=== PATIENT | female | born 1940 | race Asian ===

== ENCOUNTER 2019-03-26 17:31 | Emergency (ER) | payer OTHER, MEDICAID ==
[~2019-03-26] VITALS: Ht 160 cm; Wt 49.0 kg
[2019-03-26] MEDS ORDERED: ACETAMINOPHEN 500MG TABLET PO ONE (19:00)
[2019-03-26 19:17] LABS: BASOPHILS % 0.6 % (0.0-2.0); EOSINOPHILS % 0.8 % (0.0-5.0); HEMATOCRIT. 43.1 % (36.0-48.0); HEMOGLOBIN. 14.5 g/dL (12.0-16.0); LYMPHOCYTES % 26.1 % (20.0-50.0); MEAN CORPUSCULAR HEMOGLOBIN 32.4 pg (28.0-32.0); MEAN CORPUSCULAR VOLUME 96.2 fL (81.0-99.0); MEAN PLATELET VOLUME 9.5 fl (7.4-10.4); MONOCYTES % 7.9 % (2.0-8.0); NEUTROPHILS % 64.6 % (40.0-76.0); PLATELET 190 x1000/uL (130-400); RED BLOOD CELL COUNT 4.49 mill/uL (4.2-5.4); RED CELL DISTRIBUTION WIDTH 13.1 % (11.6-14.6)
[2019-03-26 19:24] LABS: CHLORIDE 110 mEq/L (98-107); INR 0.9; PROTHROMBIN TIME 9.7 sec (9.6-11.0)
[2019-03-26 21:06] VITALS: BP 145/71
== END 2019-03-26 21:06 | disposition home or self-care (01) ==
LOC: EDBD 17:31 → ER 17:31
DX: M71.22 Synovial cyst of popliteal space [Baker], left knee (principal); M79.662 Pain in left lower leg; I51.9 Heart disease, unspecified; Z98.890 Other specified postprocedural states
CPT/HCPCS: 36415; 93971; 99284

== ENCOUNTER 2019-07-01 03:37 | Inpatient (IN) | payer OTHER, MEDICAID ==
[~2019-07-01] VITALS: Ht 154.9 cm; Wt 47.2 kg
[2019-07-01] MEDS ORDERED: KETOROLAC 15MG/ML VIAL IV ONE (04:00)
[2019-07-01] MEDS ORDERED: MORPHINE SULFATE 2 MG/ML CPJ (NOT FOR IM USE) IV ONE (04:15)
[2019-07-01 04:51] LABS: BASOPHILS % 0.5 % (0.0-2.0); EOSINOPHILS % 0.9 % (0.0-5.0); HEMATOCRIT. 39.4 % (36.0-48.0); HEMOGLOBIN. 13.3 g/dL (12.0-16.0); LYMPHOCYTES % 18.5 % (20.0-50.0); MEAN CORPUSCULAR HEMOGLOBIN 32.1 pg (28.0-32.0); MEAN CORPUSCULAR VOLUME 95.4 fL (81.0-99.0); MEAN PLATELET VOLUME 9.2 fl (7.4-10.4); MONOCYTES % 5.7 % (2.0-8.0); NEUTROPHILS % 74.4 % (40.0-76.0); PLATELET 188 x1000/uL (130-400); RED BLOOD CELL COUNT 4.13 mill/uL (4.2-5.4); RED CELL DISTRIBUTION WIDTH 12.8 % (11.6-14.6)
[2019-07-01 05:08] LABS: CHLORIDE 111 mEq/L (98-107)
[2019-07-01 06:29] LABS: INR 1.5; PARTIAL THROMBOPLASTIN TIME 51.1 sec (23.4-31.0); PROTHROMBIN TIME 15.4 sec (9.6-11.0)
[2019-07-01] MEDS ORDERED: ONDANSETRON HCL 4MG/2ML INJ IV PRN (10:15)
[2019-07-01] MEDS ORDERED: CLONIDINE 0.1MG TABLET PO PRN (10:15)
[2019-07-01] MEDS ORDERED: IPRATROPIUM/ALBUTEROL 0.5-3(2.5)MG/3ML NEB HHN PRN (10:15)
[2019-07-01] MEDS ORDERED: ACETAMINOPHEN 650MG SUPP PR PRN (10:15)
[2019-07-01] MEDS ORDERED: IOHEXOL-300 100 ML BOTTLE ONE (12:12)
[2019-07-01] MEDS ORDERED: SODIUM CHLORIDE 0.45% 1,000 ML IV ONE (15:45)
[2019-07-01] MEDS: HYDROCODONE/ACETAMINOPHEN 5/325MG TABLET PO PRN ×2 (17:24→23:33)
[2019-07-01 20:30] VITALS: BP 132/82
[2019-07-01 21:00] VITALS: BP 141/76
[2019-07-02] VITALS: BP 119/78
[2019-07-02 04:00] VITALS: BP 133/79
[2019-07-02 06:54] LABS: CHLORIDE 108 mEq/L (98-107)
[2019-07-02 07:03] LABS: LDL CHOLESTEROL 82 mg/dL (5-100)
[2019-07-02 07:04] LABS: HDL CHOLESTEROL 56 mg/dL (40-59); T4 FREE 1.17 ng/dL (0.76-1.46)
[2019-07-02 07:23] LABS: BASOPHILS % 0.4 % (0.0-2.0); EOSINOPHILS % 2.4 % (0.0-5.0); HEMATOCRIT. 37.8 % (36.0-48.0); LYMPHOCYTES % 25.4 % (20.0-50.0); MEAN CORPUSCULAR HEMOGLOBIN 32.7 pg (28.0-32.0); MEAN PLATELET VOLUME 9.3 fl (7.4-10.4); MONOCYTES % 7.2 % (2.0-8.0); NEUTROPHILS % 64.6 % (40.0-76.0); PLATELET 182 x1000/uL (130-400); RED BLOOD CELL COUNT 3.98 mill/uL (4.2-5.4); RED CELL DISTRIBUTION WIDTH 12.9 % (11.6-14.6)
[2019-07-02 08:00] VITALS: BP 131/79
[2019-07-02 16:00] VITALS: BP 131/79
[2019-07-02] MEDS: HYDROCODONE/ACETAMINOPHEN 5/325MG TABLET PO PRN (17:16)
[2019-07-02 20:00] VITALS: BP 113/60
[2019-07-02] MEDS: GUAIFENESIN 200MG/10ML SUGAR FREE UDC PO PRN (22:44)
[2019-07-03] VITALS: BP 129/81
[2019-07-03 04:00] VITALS: BP 134/89
[2019-07-03 08:00] VITALS: BP 144/95
[2019-07-03] MEDS: GUAIFENESIN 200MG/10ML SUGAR FREE UDC PO PRN (09:48)
[2019-07-03 12:00] VITALS: BP 132/80
[2019-07-03] MEDS: HYDROCODONE/ACETAMINOPHEN 5/325MG TABLET PO PRN ×2 (12:21→17:43)
[2019-07-03 16:00] VITALS: BP 154/82
[2019-07-03 20:00] VITALS: BP 131/87
[2019-07-04] VITALS: BP 143/91
[2019-07-04 04:00] VITALS: BP 146/75
[2019-07-04 07:40] LABS: BASOPHILS % 0.5 % (0.0-2.0); EOSINOPHILS % 4.2 % (0.0-5.0); HEMATOCRIT. 39.6 % (36.0-48.0); HEMOGLOBIN. 13.4 g/dL (12.0-16.0); LYMPHOCYTES % 20.5 % (20.0-50.0); MEAN CORPUSCULAR HEMOGLOBIN 32.3 pg (28.0-32.0); MEAN CORPUSCULAR VOLUME 95.4 fL (81.0-99.0); MEAN PLATELET VOLUME 8.9 fl (7.4-10.4); MONOCYTES % 7.7 % (2.0-8.0); NEUTROPHILS % 67.1 % (40.0-76.0); PLATELET 198 x1000/uL (130-400); RED BLOOD CELL COUNT 4.15 mill/uL (4.2-5.4); RED CELL DISTRIBUTION WIDTH 12.8 % (11.6-14.6)
[2019-07-04 08:00] VITALS: BP 157/86
[2019-07-04 08:04] LABS: CHLORIDE 109 mEq/L (98-107)
[2019-07-04] MEDS ORDERED: LIDOCAINE HCL 1% 20ML VIAL (Pyxis) INJ ONE (08:32)
[2019-07-04] MEDS ORDERED: SODIUM BICARBONATE 4% (2.4MEQ) 5ML VIAL IV ONE (08:32)
[2019-07-04 12:00] VITALS: BP 140/83
[2019-07-04] MEDS: HYDROCODONE/ACETAMINOPHEN 5/325MG TABLET PO PRN ×2 (15:59→19:59)
[2019-07-04 16:00] VITALS: BP 120/78
[2019-07-04] MEDS ORDERED: RIVAROXABAN 15 MG TABLET PO SCH (17:00)
[2019-07-04] MEDS ORDERED: LORAZEPAM 2MG/ML CPJ IV PRN (17:45)
[2019-07-04] MEDS ORDERED: CLONIDINE 0.1MG TABLET PO PRN (17:45)
[2019-07-04] MEDS ORDERED: ACETAMINOPHEN 650MG/20.3ML UDC PO PRN (17:45)
[2019-07-04] MEDS ORDERED: LACTULOSE 20G/30ML UDC PO PRN (17:45)
[2019-07-04] MEDS ORDERED: DIPHENHYDRAMINE 50MG/ML VIAL IV PRN (17:45)
[2019-07-04 20:00] VITALS: BP 127/74
[2019-07-04] MEDS ORDERED: FAMOTIDINE 20MG TABLET PO SCH (21:00)
[2019-07-04] MEDS ORDERED: ATORVASTATIN CALCIUM 10MG TABLET PO SCH (21:00)
[2019-07-04] MEDS: DILTIAZEM HCL 30MG TABLET PO SCH (21:53)
[2019-07-05] VITALS: BP 119/83
[2019-07-05 04:00] VITALS: BP 138/73
[2019-07-05] MEDS: DILTIAZEM HCL 30MG TABLET PO SCH ×2 (06:28→13:18)
[2019-07-05 08:00] VITALS: BP 113/73
[2019-07-05 09:11] LABS: INR 1.1; PROTHROMBIN TIME 11.2 sec (9.6-11.0)
[2019-07-05 09:21] LABS: HEMATOCRIT 40.3 % (36.0-48.0); HEMOGLOBIN 13.9 g/dL (12.0-16.0); MEAN CORPUSCULAR HEMOGLOBIN 32.5 pg (28.0-32.0); MEAN CORPUSCULAR VOLUME 94.4 fL (81.0-99.0); PLATELET 207 x1000/uL (130-400); RED BLOOD CELL COUNT 4.27 mill/uL (4.2-5.4)
[2019-07-05 09:51] LABS: CHLORIDE 108 mEq/L (98-107)
[2019-07-05 11:51] LABS: CLARITY URINE CLEAR (CLEAR); COLOR URINE DARK YELLOW (YELLOW); KETONES URINE NEGATIVE (NEGATIVE); LEUKOCYTE ESTERASE URINE TRACE (NEGATIVE); NITRITE URINE NEGATIVE (NEGATIVE); OCCULT BLOOD URINE NEGATIVE (NEGATIVE); PH URINE 5.5 (4.5-8.0); PROTEIN URINE NEGATIVE (NEGATIVE); SPECIFIC GRAVITY URINE 1.022 (1.005-1.030)
[2019-07-05 12:00] VITALS: BP 120/78
[2019-07-05] MEDS: HYDROCODONE/ACETAMINOPHEN 5/325MG TABLET PO PRN ×2 (13:21→17:58)
[2019-07-05 14:07] LABS: ANTI-NUCLEAR ANTIBODIES DIRECT Negative (Negative)
[2019-07-05 16:00] VITALS: BP 118/86
[2019-07-05] MEDS ORDERED: RIVAROXABAN 20 MG TABLET PO SCH (17:00)
[2019-07-05 19:06] VITALS: BP 118/86
== END 2019-07-05 19:50 | disposition home or self-care (01) | DRG 554 ==
LOC: ER 03:37 → 5WST 06:15 → ENRESERV 18:10
PROVIDERS: ADMIT Internal Medicine; ATTEND Internal Medicine
PROC: 0S9D3ZZ Drainage of Left Knee Joint, Percutaneous Approach (ICD-10-PCS; principal; 2019-07-04)
DX: M25.062 Hemarthrosis, left knee (principal); I48.19 Other persistent atrial fibrillation; E78.5 Hyperlipidemia, unspecified; I08.0 Rheumatic disorders of both mitral and aortic valves; I10 Essential (primary) hypertension; E86.0 Dehydration; E78.00 Pure hypercholesterolemia, unspecified; M19.90 Unspecified osteoarthritis, unspecified site; M71.20 Synovial cyst of popliteal space [Baker], unspecified knee; M25.462 Effusion, left knee; Z79.899 Other long term (current) drug therapy; Z79.01 Long term (current) use of anticoagulants
CPT/HCPCS: 20611; 36415; 73562; 73701; 73721; 80048; 80053; 80061; 81003; 83735; 84439; 84443; 84484; 84550; 85025; 85027; 86038; 86140; 86431; 93005; 93306; 93970; 96361; 96374; 96375; 99285; J1885; J2270; J3490; Q9967

== ENCOUNTER 2021-05-03 09:39 | Emergency (ER) | payer OTHER, MEDICAID ==
[~2021-05-03] VITALS: Ht 152.4 cm; Wt 66.0 kg
[2021-05-03 10:30] VITALS: BP 162/84
[2021-05-03 10:48] LABS: BASOPHILS % 0.6 % (0.0-2.0); EOSINOPHILS % 2.4 % (0.0-5.0); HEMATOCRIT. 40.6 % (36.0-48.0); HEMOGLOBIN. 13.4 g/dL (12.0-16.0); LYMPHOCYTES % 20.3 % (20.0-50.0); MEAN CORPUSCULAR HEMOGLOBIN 31.7 pg (28.0-32.0); MEAN CORPUSCULAR VOLUME 96.3 fL (81.0-99.0); MONOCYTES % 7.3 % (2.0-8.0); NEUTROPHILS % 69.4 % (40.0-76.0); PLATELET 193 x1000/uL (130-400); RED BLOOD CELL COUNT 4.22 mill/uL (4.2-5.4); RED CELL DISTRIBUTION WIDTH 12.9 % (11.6-14.6)
[2021-05-03 11:01] LABS: INR 1.1
[2021-05-03 11:13] LABS: CHLORIDE 112 mEq/L (98-107)
[2021-05-03 12:27] LABS: CLARITY URINE TURBID (CLEAR); COLOR URINE RED (YELLOW); KETONES URINE 1+ (NEGATIVE); LEUKOCYTE ESTERASE URINE 1+ (NEGATIVE); NITRITE URINE NEGATIVE (NEGATIVE); OCCULT BLOOD URINE 3+ (NEGATIVE); PROTEIN URINE 2+ (NEGATIVE); SPECIFIC GRAVITY URINE 1.007 (1.005-1.030)
== END 2021-05-03 13:21 | disposition home or self-care (01) ==
LOC: ER 09:39
DX: R31.0 Gross hematuria (principal); I48.20 Chronic atrial fibrillation, unspecified; R03.0 Elevated blood-pressure reading, without diagnosis of hypertension; Z79.01 Long term (current) use of anticoagulants
CPT/HCPCS: 36415; 74176; 80053; 81003; 85025; 93005; 99285